=== PATIENT | female | born 1970 | race Caucasian/White ===

== ENCOUNTER 2022-01-05 17:16 | Emergency (ER) | payer OTHER, SELFPAY ==
[2022-01-05 17:18] VITALS: BP 133/100; PULSE 86; RESP 14; TEMP 36.8; O2SAT 97; BMI 25.0
--- NOTE | 2022-01-05 17:24 | EX.ED.UPPERE ---
HPI History of Present Illness HPI Narrative: Laceration right long finger Chief Complaint: Laceration Informant: patient Occured/Mechanism Mechanism/Context: Yes blunt trauma Onset/Context/Timing Onset: Hours Context: Sudden Onset Timing: Continuous Quality of Pain: Dull Current Severity: Mild Maximum Severity: Moderate Worsened by: Initial injury Relieved by: Nothing Associated Symptoms Associated Symptoms: Negative for Parasthesia, Weakness or Loss of Funtion Narrative Narrative: Patient is a 51-year-old [id number] woman who presents with laceration to right long finger. This occurred prior to arrival. She was using a weed Telma. The blade continued to spin. She attempted to stop the blade with her finger. She stained a laceration to the tip of her right long finger. She denies paresthesia, anesthesia or motor aches. She is on no medication. She has no drug allergies Tetanus Immunization: Unknown Prior similar symptoms: No Recent Illness/Hospitalization: No PFSH PFSH Medical History no medical history no medical history Allergy/AdvReac Type Severity Reaction Status Date / Time nut - unspecified [nuts] Allergy Anaphylaxis Verified 01/05/22 17:18 latex AdvReac Rash Verified 01/05/22 17:18 Social History (Updated 01/05/22 @ 17:[address] El Belcher MD) household members: spouse and family Smoking Status: Never smoker substance use type: does not use ROS ROS ED Musculoskeletal Musculoskeletal: Reports other Details: Pain right long finger ; Denies back pain, myalgias or neck pain Integumentary Reports other Details: Wound described in the HPI narrative ; Denies abscess, Abrasions or rash Neurologic Neurologic: Denies paresthesias or weakness Hematologic/Lymphatic Hematologic/Lymphatic: Denies easy bleeding or easy bruising EXAM Physical Exam Const Positive well nourished and well developed General Appearance ED: well developed; Negative for cyanotic, diaphoretic or NAD HEENT normocephalic and atraumatic Eyes PERRL and EOMs intact bilaterally Neck full ROM Resp normal respiratory effort Cardio regular rate and regular rhythm Extremity Extremity Narrative: Patient has a flap type laceration distal right long finger with involvement of the nailbed on the ulnar side. Total length of laceration is 1.5 cm. The extensor commonest tendon is intact. The flexor digitorum superficialis and flexor digitorum profundus are intact. Sensation is normal. There is no subungual hematoma noted. Neuro oriented x3, CN's II-XII intact bilaterally, no focal motor deficits and no sensory deficits noted Sensorium / Orientation: alert Psych mental status grossly normal Skin Lesions: no lesions Rashes: no rashes Trauma: Negative for no lacerations or abrasions MDM MDM MDM Narrative Medical decision making narrative: Tetanus was updated. Will repair injury involving nailbed. Please read procedure note. Procedures Other Procedures Procedure(s): Patient has laceration which involves the distal tip of the right long finger and nailbed. The digit was Nestabs with percent lidocaine by digital block. 3 cc of 1% lidocaine was infiltrated. After 5 to 10 minutes of the ulnar third of the nail was removed to expose the nailbed injury. The wound was irrigated with 200 cc of normal saline. The skin was closed using 5-0 Ethilon. Total of 3 stitches was placed. The nailbed injury was closed using 5-0 Vicryl. Tetanus was updated. Discharge Plan Triage Chief Complaint: Laceration ED Provider: El Belcher Dx/Rx/DC Orders Clinical Impression: Nailbed laceration, finger, Finger laceration Instructions: ED Laceration Hand with ... Referrals: Doctor,Your [Non-Staff] - 7 Days for suture removal Activity Restrictions/Additional Instructions: 1. Keep finger clean and dry for the next 48 to 72 hours. 2. Apply bacitracin ointment 3 times a day 3. Sutures out in 7 days Disposition Disposition: Home, Self Care
[2022-01-05] MEDS: Lidocaine 1% (20 ml mdv) 20 ML Vial INFILT (17:32)
[2022-01-05] MEDS: Diphth,Pertuss(Acell),Tet Vac 0.5 ML Vial IM (17:36)
== END 2022-01-05 18:11 | disposition home or self-care (01) ==
PROVIDERS: Emergency Provider Emergency Medicine; PCP Family Medicine; Visit Provider Emergency Medicine
DX: S61.312A Laceration without foreign body of right middle finger with damage to nail, initial encounter (principal); W26.8XXA Contact with other sharp object(s), not elsewhere classified, initial encounter; Z23 Encounter for immunization
CPT/HCPCS: 12001; 90715; 99282